=== PATIENT | male | born 1970 | race Caucasian/White ===

== ENCOUNTER 2019-02-21 19:35 | Emergency (ER) | payer BC, OTHER ==
--- NOTE | 2019-02-21 19:40 | PDOC ---
Rapid Medical Evaluation Medical Evaluation: Allergies Allergy/AdvReac Type Severity Reaction Status Date / Time No Known Allergies Allergy Verified 12/03/15 19:05 I have performed a brief in-person evaluation of this patient. The patient presents with a chief complaint of: Injured R wrist while playing softball; fell back with hand outstretched Pertinent physical exam findings: +R wrist deformity, in pain I have ordered the following: Likely colles fracture Xray, pain meds The patient will proceed to the ED for further evaluation. 02/21/19 19:38
[2019-02-21 19:41] VITALS: BP 122/89; PULSE 89; TEMP 97; BMI 27.9
--- NOTE | 2019-02-21 20:50 | PDOC ---
History of Present Illness - General Chief Complaint: Injury Stated Complaint: WRIST PAIN Time Seen by Provider: 02/21/19 19:38 History Source: Patient Exam Limitations: No Limitations - History of Present Illness Initial Comments: 48 yo M no PMH, p/w R wrist pain. Was playing softball (glove in right hand), teammate also went for ball. Patient is not sure how he fell exactly as it happened so fast, but believes it may have been a FOOSH. Did not hit head, did not have LOC. Patient had immediate 10/10 pain throughout wrist, with inability to either flex or extend. 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 Denies any other symptoms. 02/21/19 20:48 Past History - Past Medical History Allergies/Adverse Reactions: Allergies Allergy/AdvReac Type Severity Reaction Status Date / Time No Known Allergies Allergy Verified 02/21/19 19:41 Home Medications: Ambulatory Orders NK [No Known Home Medication] 12/03/15 COPD: No - Suicide/Smoking/Psychosocial Hx Smoking Status: No Smoking History: Never smoked Number of Cigarettes Smoked Daily: 0 Hx Alcohol Use: Yes (OCCASIONALLY) Substance Use Type: Alcohol Review of Systems - Review of Systems Able to Perform ROS?: Yes Constitutional: No: Chills, Fever HEENTM: No: Recent change in vision, Hearing Loss, Difficulty Swallowing Respiratory: No: Cough, Shortness of Breath Cardiac (ROS): No: Chest Pain ABD/GI: No: Diarrhea, Nausea, Vomiting Neurological: No: Headache *Physical Exam - Vital Signs Last Vital Signs Temp Pulse Resp BP Pulse Ox 97 F L 89 18 122/89 98 02/21/19 19:39 02/21/19 19:39 02/21/19 19:39 02/21/19 19:39 02/21/19 19:39 - Physical Exam Comments: Gen: appropriately dressed, holding wrist against chest, appears to be in pain HEENT: atraumatic, normocephalic CV: regular rate and rhythm Pulm: CTA b/l Abd: soft, non-distended, non-tender Extr: R wrist with extensive edema. Patient able to flex and extend fingers, however, unable to flex or extend at the wrist. Sensation intact through all fingers, and through the anterior and posterior wrist. Pulses intact. 02/21/19 20:51 Procedures - Joint Reduction Right Joint Reduction Site: right: Colles' Fracture Conscious Sedation: No Finger Block: Hematoma Reduction Attempts: 3 Anesthetic: 2% Lidocaine Amount (mL): 10 Procedure: Traction Counter Traction Post-Procedure NV Exam: normal Complications: No Post Joint Reduction Film: joint reduced Splint: Yes Immobilized: Yes ED Treatment Course - Medications Given in the ED: ED Medications Discontinued Medications Generic Name Dose Route Start Last Admin Trade Name Nikolai PRN Reason Stop Dose Admin Oxycodone/Acetaminophen 1 combo 02/21/19 19:41 02/21/19 19:50 Percocet 5/325 - PO 02/21/19 19:42 1 combo ONCE ONE Administration Medical Decision Making - Medical Decision Making X rays reviewed, appears to have radial compression fracture with possible ulnar fracture. 02/21/19 20:[address] Lange, encouraged reduction and clamshell splint, have patient see Dr. Joyner in the office tomorrow morning. Does not need appointment. 02/21/19 21:30 Reduction and splint performed, plan for repeat X ray wrist. Pulses and sensation intact. Patient says he feels tingling in his thumb, which began when Lidocaine was injected. 02/21/19 22:20 Patient reassessed, says pain down to 5/10, tingling no longer present. 02/21/19 22:38 *DC/Admit/Observation/Transfer Diagnosis at time of Disposition: Wrist fracture, right - Discharge Dispostion Disposition: HOME Condition at time of disposition: Improved Decision to Admit order: No - Referrals Referrals: Hema Joyner MD [Staff Physician] - - Patient Instructions Printed Discharge Instructions: DI for Wrist Fracture Additional Instructions: You were seen after a fall with wrist pain. You were found to have a wrist fracture. This was reduced and splinted. Please see Dr. Joyner tomorrow. You do not need to make an appointment. Please take Tylenol as needed for pain. Return to the ED if you develop new wrist pain, or if you begin to lose either motor function or sensation. - Post Discharge Activity
[2019-02-21] MEDS ORDERED: METOCLOPRAMIDE HCL INJECTION 10 MG/2 ML VIAL IVPB ONE (21:23)
[2019-02-21] MEDS ORDERED: LIDOCAINE HCL 2% (50ML VIAL) SQ ONE (21:39)
[2019-02-21] MEDS ORDERED: LIDOCAINE HCL 2% (20ML MULTI-DOSE VIAL) NR ONE (21:41)
--- NOTE | 2019-02-22 00:08 | PDOC ---
Documentation entered by Enedelia Castillo SCRIBE, acting as scribe for Sherrie Matthew DO. Sherrie Matthew DO: This documentation has been prepared by the salibpretty, Enedelia Castillo SCRIBE, under my direction and personally reviewed by me in its entirety. I confirm that the documentation accurately reflects all work , treatment, procedures, and medical decision making performed by me. Attending Attestation - Resident Resident Name: Katz,Ismalesa - ED Attending Attestation I have performed the following: I have examined & evaluated the patient, The case was reviewed & discussed with the resident, I agree w/resident's findings & plan, Exceptions are as noted - HPI HPI: 02/21/19 20:37 The patient is a 48-year-old male, with no past medical history, who presents to the ED s/p mechanical fall onto his RT wrist with pain and swelling. The patient was playing baseball. - Physicial Exam PE: 02/21/19 20:39 GENERAL: Awake, in no acute distress HEAD: No signs of trauma EYES: ENT:clear without exudates. Moist mucosa NECK: Normal ROM, LUNGS:. Normal work of breathing. HEART: Regular rate and rhythm, ABDOMEN: Soft, nondistended CHEST WALL: BACK: No midline tenderness. EXTREMITIES:. No erythema, or tenderness NEUROLOGICAL: Alert, SKIN: Warm, Dry - Medical Decision Making 02/22/19 00:04 48-year-old male with pain to the right wrist after a fall X-rays consistent with distal radius fracture Closed reduction attempts made after discussion with orthopedics with mild improvement on postreduction films Patient was neurovascularly intact both before and after reduction attempts as well as splinting Hematoma block was performed with 2% lidocaine without epinephrine See resident notes for procedure details OCL splint placed, patient DC'd with outpatient orthopedic follow-up in place for tomorrow
== END 2019-02-22 00:05 | disposition home or self-care (01) ==
LOC: JER 19:35
PROC: 0PSHXZZ Reposition Right Radius, External Approach (ICD-10-PCS; principal; 2019-02-21)
DX: S52.531A Colles' fracture of right radius, initial encounter for closed fracture (principal); W18.39XA Other fall on same level, initial encounter; Y93.64 Activity, baseball; Y92.320 Baseball field as the place of occurrence of the external cause; Y99.8 Other external cause status
CPT/HCPCS: 73110-TC-RT-FY; 73130-TC-RT-FY; 99282-25